=== PATIENT | male | born 1995 | race Two or more races ===

== ENCOUNTER 2021-01-18 14:25 | Emergency (ER) | payer MEDICAID ==
[~2021-01-18] VITALS: Ht 167.6 cm; Wt 81.8 kg
[2021-01-18] MEDS ORDERED: ALBUTEROL SULFATE HFA 90 MCG/PUFF 8 GM INHALER IH ONE (15:15)
[2021-01-18] MEDS ORDERED: SODIUM CHLORIDE 0.9% 1,000 ML IV ONE (15:15)
[2021-01-18] MEDS ORDERED: ACETAMINOPHEN 500 MG TABLET PO ONE (15:15)
[2021-01-18 15:30] LABS: COVID AG,FIA SOURCE NASOPHARYNGEAL
[2021-01-18 17:45] VITALS: BP 120/64
== END 2021-01-18 18:30 | disposition home or self-care (01) ==
LOC: EDBD 14:25 → EMS 14:25
DX: U07.1 COVID-19 (principal); R42 Dizziness and giddiness; R05 Cough; R06.02 Shortness of breath; F12.90 Cannabis use, unspecified, uncomplicated
CPT/HCPCS: 71045; 87426; 94640; 96360; 99285; J7030; U0003; J3535

== ENCOUNTER 2023-02-02 17:38 | Emergency (ER) | payer MEDICAID, OTHER ==
[~2023-02-02] VITALS: Ht 172.7 cm; Wt 93.2 kg
[2023-02-02] MEDS ORDERED: BACITRACIN 0.9 GM PACKET OINTMENT TP ONE (18:30)
[2023-02-02] MEDS ORDERED: PERTUSS(ACELL),DIPH,TET VAC/PF 0.5 ML SYRINGE IM. ONE (18:30)
[2023-02-02] MEDS ORDERED: KETOROLAC TROMETHAMINE 60 MG/2 ML VIAL IM ONE (18:30)
[2023-02-02] MEDS ORDERED: LIDOCAINE 1% 10 ML VIAL SQ ONE (18:30)
[2023-02-02] MEDS ORDERED: HYDROmorphone HCL 2 MG/ML SYRINGE IM ONE (18:30)
[2023-02-02] MEDS: ONDANSETRON HCL 4 MG/2 ML VIAL IM ONE ×2 (18:36→19:00)
[2023-02-02 20:30] VITALS: BP 118/71
[2023-02-02] MEDS ORDERED: OxyCODONE HCL/ACETAMINOPHEN 5-325 MG TABLET PO ONE (21:00)
[2023-02-02] MEDS ORDERED: IBUP-1554 PO (21:05)
[2023-02-02] MEDS ORDERED: CEPH-558 PO (21:05)
[2023-02-02] MEDS ORDERED: PERCT PO (21:05)
== END 2023-02-02 21:32 | disposition home or self-care (01) ==
LOC: EMS 17:41
DX: S61.511A Laceration without foreign body of right wrist, initial encounter (principal); F12.90 Cannabis use, unspecified, uncomplicated; W25.XXXA Contact with sharp glass, initial encounter; Y93.89 Activity, other specified; Y92.89 Other specified places as the place of occurrence of the external cause; Y99.8 Other external cause status
CPT/HCPCS: 99284; 73110; 90715; 90471; 12001; 96372; J1170; J1885; J2405; J3490

== ENCOUNTER 2024-06-17 17:10 | Emergency (ER) | payer OTHER ==
[~2024-06-17] VITALS: Ht 172.7 cm; Wt 100.0 kg
[~2024-06-17 17:10] MED LIST: CEPH-558 PO; IBUP-1554 PO; PERCT PO
[2024-06-17 17:13] VITALS: TEMP 98.3
[2024-06-17] MEDS ORDERED: IBUP-1554 PO (20:49)
[2024-06-17] MEDS: IBUPROFEN 600 MG TABLET PO ONE (20:49)
[2024-06-17] MEDS: OxyCODONE HCL/ACETAMINOPHEN 5-325 MG TABLET PO ONE (20:49)
[2024-06-17 20:56] VITALS: BP 118/87; PULSE 87; RESP 20; O2SAT 100
== END 2024-06-17 21:01 | disposition home or self-care (01) ==
LOC: EMS 17:10
DX: S93.402A Sprain of unspecified ligament of left ankle, initial encounter (principal); W22.8XXA Striking against or struck by other objects, initial encounter; Y93.89 Activity, other specified; Y92.89 Other specified places as the place of occurrence of the external cause; Y99.0 Civilian activity done for income or pay
CPT/HCPCS: 99283

== ENCOUNTER → 2024-06-26 | Emergency (ER) | payer OTHER ==
[~2024-06-26] VITALS: Ht 172.7 cm; Wt 100.0 kg
[~2024-06-26] MED LIST changes: -CEPH-558 PO
[2024-06-26 18:30] VITALS: BP 141/74; PULSE 60; RESP 18; TEMP 98; O2SAT 97
== END | disposition home or self-care (01) ==
LOC: EMS 18:14
DX: S93.402A Sprain of unspecified ligament of left ankle, initial encounter (principal); X58.XXXA Exposure to other specified factors, initial encounter; Y93.89 Activity, other specified; Y92.89 Other specified places as the place of occurrence of the external cause; Y99.8 Other external cause status
CPT/HCPCS: 99282; Z7502